=== PATIENT | female | born 2000 | race Caucasian/White ===

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

== ENCOUNTER 2018-12-02 10:32 | Inpatient (IN) | payer MEDICAID ==
[~2018-12-02 10:32] MED LIST: Lidocaine 1% with EPINEPHrine 1:100,000 20 ML MDV INJECT ONE; fentaNYL 400 MCG in Ropivacaine HCl/PF 200 ML IV ONE
[2018-12-02] MEDS ORDERED: Penicillin G Potassium 5 MILLUNITS in Sodium Chloride 0.9% 100 ML IV ONE (11:00)
[2018-12-02] MEDS: Sodium Chloride 0.9% 10 ML Syringe FLUSH PRN ×2 (11:17→14:26)
[2018-12-02] MEDS: Clindamycin in 0.9 % Sod Chlor 900 MG/50 ML BAG IV SCH ×2 (11:42→19:05)
[2018-12-02] MEDS ORDERED: Lactated Ringers 1,000 ML IV ONE (13:00)
[2018-12-02] MEDS: Lactated Ringers 1,000 ML IV SCH ×2 (14:20→18:22)
[2018-12-02] MEDS ORDERED: Naloxone 0.4 MG/ML SDV IVPUSH PRN (14:30)
[2018-12-02] MEDS ORDERED: ePHEDrine 50 MG/ML SDV IVPUSH PRN (14:30)
[2018-12-02] MEDS ORDERED: diphenhydrAMINE 50 MG/ML SDV IV PRN (14:30)
[2018-12-02] MEDS ORDERED: Lactated Ringers 500 ML IV SCH (14:30)
[2018-12-02] MEDS ORDERED: Ondansetron 4 MG/2 ML SDV IVPUSH PRN (14:30)
[2018-12-02] MEDS ORDERED: Penicillin G Potassium 2.5 MILLUNITS in Sodium Chloride 0.9% 50 ML IV SCH (15:30)
[2018-12-02] MEDS ORDERED: FENTANYL IV ONE (18:22)
[2018-12-02] MEDS ORDERED: ROPIVACAINE HCL IV ONE (18:22)
[2018-12-02] MEDS ORDERED: Meperidine PF 25 MG/ML Syringe IVPUSH ONE (20:22)
[2018-12-02] MEDS ORDERED: Promethazine 25 MG in Sodium Chloride 0.9% 50 ML IV ONE (20:24)
[2018-12-02] MEDS ORDERED: fentaNYL 400 MCG in Ropivacaine HCl/PF 200 ML IV ONE (20:25)
[2018-12-02] MEDS ORDERED: Promethazine 25 MG/ML SDV IV ONE (20:30)
[2018-12-02] MEDS ORDERED: Promethazine 25 MG/ML SDV ONE (20:30)
--- NOTE | 2018-12-03 05:45 | DEL ---
DATE OF DELIVERY: 12/02/2018 DIAGNOSES: 1. Removal of retained placenta. 2. Group B streptococcus positivity in . 3. Still . BRIEF SUMMARY: This is a 18-year-old female who came in with ruptured membranes. We started Pitocin. I saw her about 1930 hours and at that time she was 4 cm. Epidural was asked for and obtained. Initially, it was inadequate, but this was reinforced and a new 1 placed, and it was adequate. She started pushing around 11, and with 1 push delivered a live male infant. I arrived in the room shortly after the baby was on the maternal abdomen. I cut the cord and handed the baby to awaiting nurses. The placenta had difficulty coming out and only a piece came out with the cord. I then had to use a sterile procedure, and inserted my whole arm and was able to disattach it from the uterine fundus. This took a little difficulty, but eventually was able to be done with some oxytocin. Minimal bleeding was encountered. The patient was stable after delivery. We will follow with fluids and also on CBC in the morning. /[id number] PATRICIA/ANITA
[2018-12-03] MEDS: Clindamycin in 0.9 % Sod Chlor 900 MG/50 ML BAG IV SCH (06:44)
[2018-12-03] MEDS: Ibuprofen 600 MG Tab PO PRN ×3 (07:41→21:45)
--- NOTE | 2018-12-03 19:50 | PCM.PNPP ---
- General Info Date of Service: 12/03/18 Subjective Update: Doing well. No pain. Functional Status: Reports: Pain Controlled - Review of Systems General: Reports: No Symptoms HEENT: Reports: No Symptoms Pulmonary: Reports: No Symptoms Cardiovascular: Reports: No Symptoms Gastrointestinal: Reports: No Symptoms Genitourinary: Reports: No Symptoms Musculoskeletal: Reports: No Symptoms Skin: Reports: No Symptoms Neurological: Reports: No Symptoms Psychiatric: Reports: No Symptoms - General Info Date of Service: 12/03/18 - Patient Data Vital Signs - Most Recent: Last Vital Signs Temp 98 F 12/03/18 16:23 Pulse 61 12/03/18 16:23 Resp 18 12/03/18 16:23 BP 110/62 12/03/18 16:23 Pulse Ox 99 12/03/18 16:23 Weight - Most Recent: 71.214 kg I&O - Last 24 Hours: Intake & Output 12/03/18 12/03/18 12/03/18 06:59 14:59 22:59 Output Total 1000 Balance -1000 Lab Results - Last 24 Hours: Laboratory Results - last 24 hr 12/03/18 Range/Units 06:42 WBC 13.4 H (4.5-12.0) X10-3/uL RBC 4.55 (3.23-5.20) x10(6)uL Hgb 13.6 (11.5-15.5) g/dL Hct 39.9 (30.0-51.3) % MCV 87.8 (80-96) fL MCH 29.9 (27.7-33.6) pg MCHC 34.1 (32.2-35.4) g/dL RDW 12.3 (11.5-15.5) % Plt Count 204 (125-369) X10(3)uL MPV 7.9 (7.4-10.4) fL Neut % (Auto) 77.5 (46-82) % Lymph % (Auto) 14.2 (13-37) % [place] % (Auto) 6.1 (4-12) % Eos % (Auto) 1 (1.0-5.0) % Baso % (Auto) 1 (0-2) % Neut # (Auto) 10.4 H (1.6-8.3) # Lymph # (Auto) 1.9 (0.6-5.0) # [place] # (Auto) 0.8 (0.0-1.3) # Eos # (Auto) 0.1 (0.0-0.8) # Baso # (Auto) 0.2 (0.0-0.2) # Med Orders - Current: Current Medications Diphenhydramine HCl (Benadryl) 25 mg IV ASDIRECTED PRN PRN Reason: Pruritus Ibuprofen (Motrin) 600 mg PO Q4H PRN PRN Reason: Pain Last Admin: 12/03/18 12:21 Dose: 600 mg Sodium Chloride (Saline Flush) 10 ml FLUSH ASDIRECTED PRN PRN Reason: Keep Vein Open Last Admin: 12/02/18 14:26 Dose: 10 ml Discontinued Medications Ephedrine Sulfate (Ephedrine Sulfate) 5 mg IVPUSH ASDIRECTED PRN PRN Reason: Hypotension Stop: 12/03/18 00:10 Penicillin G Potassium 5 (millunits/ Sodium Chloride) 100 mls @ 100 mls/hr IV ONETIME ONE Stop: 12/02/18 11:59 Last Admin: 12/02/18 11:24 Dose: 100 mls/hr Clindamycin/Sodium Chloride (Cleocin In Ns) 900 mg in 50 mls @ 100 mls/hr IV Q8H LEILA Last Admin: 12/03/18 06:44 Dose: Not Given Lactated Ringer's (Ringers, Lactated) 1,000 mls @ 999 mls/hr IV BOLUS ONE Stop: 12/02/18 14:00 Last Admin: 12/02/18 13:30 Dose: 999 mls/hr Lactated Ringer's (Ringers, Lactated) 1,000 mls @ 999 mls/hr IV BOLUS LEILA Lactated Ringer's (Ringers, Lactated) 1,000 mls @ 125 mls/hr IV ASDIRECTED LEILA Last Infusion: 12/02/18 21:44 Dose: 125 mls/hr Oxytocin/Sodium Chloride (Pitocin In Ns 20 Units/1,000 Ml) 20 unit in 1,000 mls @ 6 mls/hr IV TITRATE LEILA; Protocol Last Titration: 12/02/18 21:30 Dose: 6 munits/min, 18 mls/hr Promethazine HCl 25 mg/ Sodium (Chloride) 51 mls @ 200 mls/hr IV ONETIME ONE Stop: 12/02/18 20:39 Last Admin: 12/02/18 21:15 Dose: Not Given Meperidine HCl (Demerol) 25 mg IVPUSH ONETIME ONE Stop: 12/02/18 20:23 Last Admin: 12/02/18 20:38 Dose: 25 mg Naloxone HCl (Narcan) 0.1 mg IVPUSH ONETIME PRN PRN Reason: Sedation Ondansetron HCl (Zofran) 4 mg IVPUSH Q6H PRN PRN Reason: Nausea/Vomiting Promethazine HCl (Phenergan) 25 mg IV ONETIME ONE Stop: 12/02/18 20:31 Last Admin: 12/02/18 20:48 Dose: 25 mg Promethazine HCl (Phenergan) Confirm Administered Dose 25 mg .ROUTE .STK-MED ONE Stop: 12/02/18 20:31 Last Admin: 12/02/18 21:12 Dose: Not Given - Infant Interaction Disposition, : to Nursery Infant Feeding: Bottle Fed Support Person: Mother, Significant Other - Recovery Exam Fundal Tone: Firm Fundal Level: At Umbilicus Fundal Placement: Midline Lochia Amount: Small Lochia Color: Rubra/Red Perineum Description: Intact, Minimal Bruising/Swelling Episiotomy/Laceration: None Bladder Status: Voiding - Exam General: Alert, Oriented HEENT: Pupils Equal Neck: Supple Lungs: Clear to Auscultation, Normal Respiratory Effort Cardiovascular: Regular Rate, Regular Rhythm GI/Abdominal Exam: Normal Bowel Sounds, Soft, Non-Tender, No Organomegaly, No Distention, No Abnormal Bruit, No Mass, Pelvis Stable Extremities: Normal Inspection, Normal Range of Motion, Non-Tender, No Pedal Edema, Normal Capillary Refill Skin: Warm, Dry, Intact Wound/Incisions: Healing Well Neurological: No New Focal Deficit Psy/Mental Status: Alert, Normal Affect, Normal Mood - Problem List & Annotations (1) Vaginal delivery SNOMED Code(s): 857453630 Code(s): O80 - ENCOUNTER FOR FULL-TERM UNCOMPLICATED DELIVERY Status: Acute Current Visit: Yes (2) care and examination SNOMED Code(s): 013813999, 288559509 Code(s): Z39.2 - ENCOUNTER FOR ROUTINE FOLLOW-UP Status: Acute Current Visit: Yes - Problem List Review Problem List Initiated/Reviewed/Updated: Yes - My Orders Last 24 Hours: My Active Orders 12/02/18 23:39 Vital Signs [RC] 08,16,00 Ibuprofen [Motrin] 600 mg PO Q4H PRN Assess Uterine Involution [WOMSER] Per Unit Routine - Plan Plan:: Offered Nicotine gum,or patches. Declined. DC home tomorrow
[2018-12-04] MEDS: Ibuprofen 600 MG Tab PO PRN (06:24)
--- NOTE | 2018-12-04 07:01 | PCM.PNPP ---
- General Info Date of Service: 12/04/18 Functional Status: Reports: Pain Controlled - Review of Systems General: Reports: No Symptoms HEENT: Reports: No Symptoms Pulmonary: Reports: No Symptoms Cardiovascular: Reports: No Symptoms - General Info Date of Service: 12/04/18 - Patient Data Vital Signs - Most Recent: Last Vital Signs Temp 98.0 F 12/04/18 00:00 Pulse 63 12/04/18 00:00 Resp 16 12/04/18 00:00 BP 133/72 12/04/18 00:00 Pulse Ox 99 12/04/18 00:00 Weight - Most Recent: 71.214 kg Med Orders - Current: Current Medications Diphenhydramine HCl (Benadryl) 25 mg IV ASDIRECTED PRN PRN Reason: Pruritus Ibuprofen (Motrin) 600 mg PO Q4H PRN PRN Reason: Pain Last Admin: 12/04/18 06:24 Dose: 600 mg Sodium Chloride (Saline Flush) 10 ml FLUSH ASDIRECTED PRN PRN Reason: Keep Vein Open Last Admin: 12/02/18 14:26 Dose: 10 ml Discontinued Medications Ephedrine Sulfate (Ephedrine Sulfate) 5 mg IVPUSH ASDIRECTED PRN PRN Reason: Hypotension Stop: 12/03/18 00:10 Penicillin G Potassium 5 (millunits/ Sodium Chloride) 100 mls @ 100 mls/hr IV ONETIME ONE Stop: 12/02/18 11:59 Last Admin: 12/02/18 11:24 Dose: 100 mls/hr Clindamycin/Sodium Chloride (Cleocin In Ns) 900 mg in 50 mls @ 100 mls/hr IV Q8H LEILA Last Admin: 12/03/18 06:44 Dose: Not Given Lactated Ringer's (Ringers, Lactated) 1,000 mls @ 999 mls/hr IV BOLUS ONE Stop: 12/02/18 14:00 Last Admin: 12/02/18 13:30 Dose: 999 mls/hr Lactated Ringer's (Ringers, Lactated) 1,000 mls @ 999 mls/hr IV BOLUS LEILA Lactated Ringer's (Ringers, Lactated) 1,000 mls @ 125 mls/hr IV ASDIRECTED LEILA Last Infusion: 12/02/18 21:44 Dose: 125 mls/hr Oxytocin/Sodium Chloride (Pitocin In Ns 20 Units/1,000 Ml) 20 unit in 1,000 mls @ 6 mls/hr IV TITRATE LEILA; Protocol Last Titration: 12/02/18 21:30 Dose: 6 munits/min, 18 mls/hr Promethazine HCl 25 mg/ Sodium (Chloride) 51 mls @ 200 mls/hr IV ONETIME ONE Stop: 12/02/18 20:39 Last Admin: 12/02/18 21:15 Dose: Not Given Meperidine HCl (Demerol) 25 mg IVPUSH ONETIME ONE Stop: 12/02/18 20:23 Last Admin: 12/02/18 20:38 Dose: 25 mg Naloxone HCl (Narcan) 0.1 mg IVPUSH ONETIME PRN PRN Reason: Sedation Ondansetron HCl (Zofran) 4 mg IVPUSH Q6H PRN PRN Reason: Nausea/Vomiting Promethazine HCl (Phenergan) 25 mg IV ONETIME ONE Stop: 12/02/18 20:31 Last Admin: 12/02/18 20:48 Dose: 25 mg Promethazine HCl (Phenergan) Confirm Administered Dose 25 mg .ROUTE .STK-MED ONE Stop: 12/02/18 20:31 Last Admin: 12/02/18 21:12 Dose: Not Given - Interaction Infant Disposition, : in Room with Family Feeding: Bottle Fed Support Person: Mother, Significant Other - Recovery Exam Fundal Tone: Firm Fundal Level: 2 Fingerbreadths Below Umbilicus Fundal Placement: Midline Lochia Amount: Small Lochia Color: Rubra/Red Perineum Description: Intact, Minimal Bruising/Swelling Episiotomy/Laceration: None Bladder Status: Voiding - Exam General: Alert, Oriented HEENT: Pupils Equal Neck: Supple Lungs: Clear to Auscultation, Normal Respiratory Effort Cardiovascular: Regular Rate, Regular Rhythm GI/Abdominal Exam: Normal Bowel Sounds, Soft, Non-Tender, No Organomegaly, No Distention, No Abnormal Bruit, No Mass, Pelvis Stable Extremities: Normal Inspection, Normal Range of Motion, Non-Tender, No Pedal Edema, Normal Capillary Refill Skin: Warm, Dry, Intact Wound/Incisions: Healing Well Neurological: No New Focal Deficit Psy/Mental Status: Alert, Normal Affect, Normal Mood - Problem List & Annotations (1) Vaginal delivery SNOMED Code(s): 883012271 Code(s): O80 - ENCOUNTER FOR FULL-TERM UNCOMPLICATED DELIVERY Status: Acute Current Visit: Yes (2) care and examination SNOMED Code(s): 067099415, 167141886 Code(s): Z39.2 - ENCOUNTER FOR ROUTINE FOLLOW-UP Status: Acute Current Visit: Yes - Problem List Review Problem List Initiated/Reviewed/Updated: Yes - Plan Plan:: [place] home today. Follow up 6 weeks
== END 2018-12-04 10:30 | disposition home or self-care (01) | DRG 807 ==
LOC: FB.OBCHECK 10:32 → FB.OB 10:32 → FB.OBCHECK 10:44 → FB.OB 10:45
PROVIDERS: ADMIT Family Medicine; ATTEND Family Medicine
PROC: 10E0XZZ Delivery of Products of Conception, External Approach (ICD-10-PCS; principal; 2018-12-02)
PROC: 3E033VJ Introduction of Other Hormone into Peripheral Vein, Percutaneous Approach (ICD-10-PCS; 2018-12-02)
DX: O99.824 Streptococcus B carrier state complicating childbirth (principal); Z37.0 Single live birth; O99.334 Smoking (tobacco) complicating childbirth; F17.210 Nicotine dependence, cigarettes, uncomplicated; Z3A.38 38 weeks gestation of pregnancy
CPT/HCPCS: 36415; 59409; 85025; A9270-GY; J2175; J2540; J2550; J2590; J2795; J3010; J3490; J7030; J7120

== ENCOUNTER 2020-10-12 05:27 | Emergency (ER) | payer MEDICAID ==
--- NOTE | 2020-10-12 13:05 | ER ---
DATE SEEN: 10/12/2020 REASON FOR VISIT: Check tampon. HISTORY OF PRESENT ILLNESS: This is a 20-year-old who was not sure whether she changed her tampon and is worried that it is stuck up in her vagina. She was not able to feel the strings. PAST MEDICAL HISTORY: Healthy with no active medical problems. ALLERGIES: None except penicillin. PHYSICAL EXAMINATION: VITAL SIGNS: Afebrile. 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 IMPRESSION: Encountered to check for foreign body in the vagina. PLAN: Reassurance. /[id number] TN/MODL
== END 2020-10-12 06:00 | disposition home or self-care (01) ==
LOC: FB.ED 05:27
DX: T19.2XXA Foreign body in vulva and vagina, initial encounter (principal)
CPT/HCPCS: 99283

== ENCOUNTER 2020-11-15 12:14 | Emergency (ER) | payer MEDICAID ==
[2020-11-15] MEDS ORDERED: Ketorolac 30 MG/ML SDV IM ONE (12:40)
[2020-11-15] MEDS ORDERED: Ondansetron 4 MG Tab.DIS PO ONE (12:41)
--- NOTE | 2020-11-15 12:54 | EDM.PDOC ---
ED HPI GENERAL MEDICAL PROBLEM - General Chief Complaint: Headache Stated Complaint: POSSIBLE COVID Time Seen by Provider: 11/15/20 12:35 Source of Information: Reports: Patient History Limitations: Reports: No Limitations - History of Present Illness INITIAL COMMENTS - FREE TEXT/NARRATIVE: 20 yo female was tested in a local clinic yesterday for Covid and tested neg. Her brother with whom she resides recently tested positive. She has not been vaccinated for Covid. She reports a sore throat with an occasional cough for about a week, nausea and vomiting for 2 d, and diffuse body aches and PAZ for just under 2 days. She is not dizzy with standing. No diarrhea. Onset: Gradual Onset Date: 11/08/20 Duration: Week(s): (1), Getting Worse Location: Reports: Generalized Quality: Reports: Ache Severity: Moderate Improves with: Reports: None Worsens with: Reports: Other (time) Context: Reports: Other (See HPI) Associated Symptoms: Reports: Cough (occasional), Headaches, Nausea/Vomiting. 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) (none) - Related Data Allergies Allergy/AdvReac Type Severity Reaction Status Date / Time penicillin G Allergy Itching Verified 10/12/20 06:52 Home Meds: Home Meds NK [No Known Home Meds] 07/10/17 [History] Past Medical History - Past Health History Medical/Surgical History: Denies Medical/Surgical History HEENT History: Reports: Other (See Below) Other HEENT History: ears Cardiovascular History: Reports: Other (See Below) Other Cardiovascular History: states had a murmur when a baby also states has rare episodes of chest pain 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 Neurological History: Reports: Migraines Psychiatric History: Reports: Anxiety, Depression Other Psychiatric History: admits to smoking marijuana daily - Past Surgical History HEENT Surgical History: Reports: Myringotomy w Tube(s), Tonsillectomy Neurological Surgical History: Reports: None Social & Family History - Family History Family Medical History: No Pertinent Family History - Caffeine Use Caffeine Use: Reports: Soda Other Caffeine Use: 3 ED ROS GENERAL - Review of Systems Review Of Systems: See Below Constitutional: Reports: Malaise, Decreased Appetite HEENT: Reports: Ear Pain, Rhinitis, Throat Pain Respiratory: Reports: Cough. Denies: Shortness of Breath, Wheezing, Pleuritic Chest Pain, Sputum, Hemoptysis Cardiovascular: Reports: No Symptoms Endocrine: Reports: No Symptoms GI/Abdominal: Reports: Black Stool, Bloody Stool, Nausea, Vomiting. Denies: Diarrhea, Hematemesis : Reports: No Symptoms Musculoskeletal: Reports: No Symptoms Skin: Reports: No Symptoms Neurological: Reports: No Symptoms Psychiatric: Reports: No Symptoms - Physical Exam Exam: See Below Exam Limited By: No Limitations General Appearance: Alert, WD/WN, No Apparent Distress Eye Exam: Bilateral Eye: Normal Inspection Ears: Normal External Exam, Normal Canal, Hearing Grossly Normal, Normal TMs Nose: Normal Inspection, No Blood Throat/Mouth: Normal Inspection, Normal Lips, Normal Oropharynx, Normal Voice, No Airway Compromise Head Exam: Atraumatic, Normocephalic Neck: Normal Inspection Respiratory/Chest: No Respiratory Distress, Lungs Clear, Normal Breath Sounds, No Accessory Muscle Use Cardiovascular: Regular Rate, Rhythm, No Edema GI/Abdominal: Soft, Non-Tender, No Distention Neuro Exam (Abbreviated): Alert, Oriented, CN II-XII Intact, Normal Cognition, No Motor/Sensory Deficits Back Exam: Normal Inspection, CVA Tenderness (R), CVA Tenderness (L) Extremities: Normal Inspection, Normal Range of Motion, Non-Tender, No Pedal Edema Psychiatric: Normal Affect, Normal Mood Skin Exam: Warm, Dry, Intact, Normal Color, No Rash Course - Orders/Labs/Meds Orders: Active Orders 24 hr Category Date Time Status Isolation [COMM] Routine Oth 11/15/20 12:42 Ordered Labs: Laboratory Tests 11/15/20 11/15/20 11/15/20 Range/Units 13:00 13:00 13:13 WBC 6.2 (3.0-10.3) x10-3/uL RBC 4.84 (3.60-5.20) x10(6)uL Hgb 14.6 (11.4-15.5) g/dL Hct 42.7 (34.2-48.2) % MCV 88.3 (76.7-100.5) fL MCH 30.2 (23.9-33.9) pg MCHC 34.3 (31.9-34.8) g/dL RDW 12.2 L (12.3-16.5) % Plt Count 169 (151-488) x10(3)uL Sodium 138 (135-145) mmol/L Potassium 3.9 (3.5-5.3) mmol/L Chloride 103 (100-110) mmol/L Carbon Dioxide 25 (21-32) mmol/L BUN 8 (7-18) mg/dL Creatinine 1.0 (0.55-1.02) mg/dL Est Cr Clr Drug Dosing TNP Estimated GFR (MDRD) > 60 (>60) BUN/Creatinine Ratio 8.0 L (9-20) Glucose 110 (80-116) mg/dL Calcium 8.9 (8.6-10.2) mg/dL SARS-CoV-2 RNA (VERONICA) Positive H (NEGATIVE) Meds: Medications Discontinued Medications Generic Name Dose Route Start Last Admin Trade Name Freq PRN Reason Stop Dose Admin Ketorolac Tromethamine 30 mg 11/15/20 12:40 11/15/20 13:01 Ketorolac 30 Mg/Ml Sdv IM 11/15/20 12:41 30 mg ONETIME ONE Administration Ondansetron HCl 4 mg 11/15/20 12:41 11/15/20 13:01 Ondansetron 4 Mg Tab.Dis PO 11/15/20 12:42 4 mg ONETIME ONE Administration - Re-Assessments/Exams Free Text/Narrative Re-Assessment/Exam: 11/15/20 14:14 Is feeling better now after tx. Departure - Departure Time of Disposition: 14:20 Disposition: Home, Self-Care 01 Condition: Fair Clinical Impression: COVID-19 - Discharge Information *PRESCRIPTION DRUG MONITORING PROGRAM REVIEWED*: Not Applicable *COPY OF PRESCRIPTION DRUG MONITORING REPORT IN PATIENT JONAH: Not Applicable Instructions: COVID-19 Frequently Asked Questions, Symptoms of COVID-19 - CDC (04/03/2020) Forms: ED Department Discharge Additional Instructions: Take Zofran as needed for nausea control. Use ibuprofen and/or acetaminophen as needed for body aches/fever control. F/U with your provider or return here if short of breath. Isolate yourself for the next week to prevent spread. - My Orders Last 24 Hours: My Active Orders 11/15/20 12:42 Isolation [COMM] Routine - Assessment/Plan Last 24 Hours: My Active Orders 11/15/20 12:42 Isolation [COMM] Routine
== END 2020-11-15 15:05 | disposition home or self-care (01) ==
LOC: FB.ED 12:14
DX: U07.1 COVID-19 (principal); Z88.0 Allergy status to penicillin
CPT/HCPCS: 36415; 80048; 85027; 87635; 87804; 96372; 99284; A9270; J1885; U0002

== ENCOUNTER 2021-02-06 15:04 | Emergency (ER) | payer MEDICAID ==
[2021-02-06] MEDS ORDERED: Lidocaine 2% 20 ML MDV INFILT ONE (15:05)
[2021-02-06 16:52] LABS: ACETAMINOPHEN < 2 ug/mL (<2)
--- NOTE | 2021-02-06 17:56 | EDM.PDOC ---
ED HPI GENERAL MEDICAL PROBLEM - General Chief Complaint: Upper Extremity Injury/Pain Stated Complaint: left arm bleeding Time Seen by Provider: 02/06/21 15:15 Source of Information: Reports: Patient, Family History Limitations: Reports: No Limitations - History of Present Illness INITIAL COMMENTS - FREE TEXT/NARRATIVE: Patient is a 20 YO WF who presented to the ED because of suicidal ideation and self harm. She has a history of anxiety and depression and has been worse since his father in December of 2020. She is on antidepressant which she quit taking 1.5 years ago because she think it's not helping. At times she think she is too although she doesn't have active plans in mind. " Today I just snapped because my sister in [place] don't talk to me anymore and I just grabbed a knife and cut my left wrist twice". She has a history of cutting her left wrist without intent of dying. She also denies having homicidal ideation. There is no associated hallucinations. She does drink alcohol and smoke weed occasionally. 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 Neurological History: Reports: Migraines Psychiatric History: Reports: Anxiety, Depression Other Psychiatric History: admits to smoking marijuana daily - Infectious Disease History Infectious Disease History: Reports: None - Past Surgical History HEENT Surgical History: Reports: Myringotomy w Tube(s), Tonsillectomy Neurological Surgical History: Reports: None Social & Family History - Family History Family Medical History: No Pertinent Family History - Caffeine Use Caffeine Use: Reports: Soda Other Caffeine Use: 3 Review of Systems - Review of Systems Review Of Systems: See Below Constitutional: Reports: No Symptoms Eyes: Reports: No Symptoms Ears: Reports: No Symptoms Nose: Reports: No Symptoms Mouth/Throat: Reports: No Symptoms Respiratory: Reports: No Symptoms Cardiovascular: Reports: No Symptoms GI/Abdominal: Reports: No Symptoms Genitourinary: Reports: No Symptoms Musculoskeletal: Reports: No Symptoms Skin: Reports: Wound Neurological: Reports: No Symptoms Psychiatric: Reports: Depression ED EXAM, GENERAL - Physical Exam Exam: See Below Exam Limited By: No Limitations General Appearance: Alert, No Apparent Distress Ears: Normal External Exam, Normal Canal Nose: Normal Inspection, Normal Mucosa, No Blood Throat/Mouth: Normal Inspection, Normal Lips, Normal Teeth, Normal Gums, Normal Oropharynx, Normal Voice Head: Atraumatic, Normocephalic Neck: Normal Inspection, Supple, Non-Tender, Full Range of Motion Respiratory/Chest: No Respiratory Distress, Lungs Clear, Normal Breath Sounds, No Accessory Muscle Use, Chest Non-Tender Cardiovascular: Normal Peripheral Pulses, Regular Rate, Rhythm, No Edema, No Gallop GI/Abdominal: Normal Bowel Sounds, Soft, Non-Tender, No Organomegaly, No Distention, No Abnormal Bruit, No Mass Back Exam: Normal Inspection, Full Range of Motion Extremities: Normal Inspection, Normal Range of Motion, Non-Tender, No Pedal Edema, Normal Capillary Refill Neurological: Alert, Oriented, CN II-XII Intact, Normal Cognition, Normal Reflexes, No Motor/Sensory Deficits Psychiatric: Depressed Mood Skin Exam: Warm ED TRAUMA EXTREMITY PROCEDURES - Laceration/Wound Repair Left Arm Lac/Wound Length In cm: 8 Appearance: Subcutaneous Distal NVT: Neuro & Vascular Intact Anesthetic Type: Local Local Anesthesia - Lidocaine (Xylocaine): 2% Plain Local Anesthetic Volume: 4cc Skin Prep: Chlorhexidine (Hibiciens) Exploration/Debridement/Repair: Wound Explored Closed With: Sutures Suture Size: 3-0 # of Sutures: 10 Suture Type: Nylon Course - Vital Signs Text/Narrative:: Lab result was reviewed and discussed with patient Tdap Last Recorded V/S: Last Vital Signs Temp 36.8 C 02/06/21 15:04 Pulse 78 02/06/21 16:30 Resp 18 02/06/21 16:30 BP 124/71 02/06/21 16:30 Pulse Ox 98 02/06/21 15:04 - Orders/Labs/Meds Labs: Laboratory Tests 02/06/21 02/06/21 02/06/21 Range/Units 15:40 15:40 15:40 WBC 11.1 H (3.0-10.3) x10-3/uL RBC 4.92 (3.60-5.20) x10(6)uL Hgb 14.6 (11.4-15.5) g/dL Hct 43.1 (34.2-48.2) % MCV 87.5 (76.7-100.5) fL MCH 29.6 (23.9-33.9) pg MCHC 33.9 (31.9-34.8) g/dL RDW 12.9 (12.3-16.5) % Plt Count 202 (151-488) x10(3)uL MPV 7.4 (7.1-12.4) fL Neut % (Auto) 82.0 H (30.8-76.2) % Lymph % (Auto) 8.7 L (18.4-52.1) % [place] % (Auto) 7.6 (4.4-15.7) % Eos % (Auto) 1.5 (0.6-8.1) % Baso % (Auto) 0.2 (0.2-1.5) % Neut # (Auto) 9.1 H (1.5-6.3) x10-3/uL Lymph # (Auto) 1.0 (1.0-4.4) x10-3/uL [place] # (Auto) 0.8 (0.3-1.0) x10-3/uL Eos # (Auto) 0.2 (0.0-0.8) x10-3/uL Baso # (Auto) 0.0 (0.0-0.1) x10-3/uL Sodium 140 (135-145) mmol/L Potassium 3.6 (3.5-5.3) mmol/L Chloride 101 (100-110) mmol/L Carbon Dioxide 28 (21-32) mmol/L BUN 9 (7-18) mg/dL Creatinine 1.1 H (0.55-1.02) mg/dL Est Cr Clr Drug Dosing TNP Estimated GFR (MDRD) > 60 (>60) BUN/Creatinine Ratio 8.2 L (9-20) Glucose 103 (80-116) mg/dL Calcium 9.3 (8.6-10.2) mg/dL Total Bilirubin 0.6 (0.1-1.3) mg/dL AST 16 (5-25) IU/L ALT 14 (12-36) U/L Alkaline Phosphatase 51 L (56-112) IU/L Total Protein 8.3 H (6.0-8.0) g/dL Albumin 4.3 (3.5-5.2) g/dL Globulin 4.0 g/dL Albumin/Globulin Ratio 1.1 Free T4 Direct (0.82-1.77) ng/dL TSH, Ultra Sensitive (0.36-3.74) IU/mL HCG, Quant < 5 L (<5) mIU/mL Urine Color (YELLOW) Urine Appearance (CLEAR) Urine pH (5.0-6.5) Ur Specific [place] (1.010-1.025) Urine Protein (NEGATIVE) mg/dL Urine Glucose (UA) (NORMAL) mg/dL Urine Ketones (NEGATIVE) mg/dL Urine Occult Blood (NEGATIVE) Urine Nitrite (NEGATIVE) Urine Bilirubin (NEGATIVE) Urine Urobilinogen (NEGATIVE) mg/dL Ur Leukocyte Esterase (NEGATIVE) Urine RBC (0-5) Urine WBC (0-5) Ur Squamous Epith Cells (NS,R,O) Urine Bacteria (NS) Salicylates 0.4 L (<2.8) mg/dL Urine Opiates Screen (NEGATIVE) Ur Buprenorphine Scrn (NEGATIVE) Ur Oxycodone Screen (NEGATIVE) Urine Methadone Screen (NEGATIVE) Ur Propoxyphene Screen (NEGATIVE) Acetaminophen < 2 L (<2) ug/mL Ur Barbiturates Screen (NEGATIVE) Ur Tricyclics Screen (NEGATIVE) Ur Phencyclidine Scrn (NEGATIVE) Ur Amphetamine Screen (NEGATIVE) U Methamphetamines Scrn (NEGATIVE) U Benzodiazepines Scrn (NEGATIVE) U Cocaine Metab Screen (NEGATIVE) U Marijuana (THC) Screen (NEGATIVE) Ethyl Alcohol < 0.03 (<0.03) % SARS-CoV-2 RNA (VERONICA) (NEGATIVE) 02/06/21 02/06/21 02/06/21 Range/Units 15:40 15:40 16:58 WBC (3.0-10.3) x10-3/uL RBC (3.60-5.20) x10(6)uL Hgb (11.4-15.5) g/dL Hct (34.2-48.2) % MCV (76.7-100.5) fL MCH (23.9-33.9) pg MCHC (31.9-34.8) g/dL RDW (12.3-16.5) % Plt Count (151-488) x10(3)uL MPV (7.1-12.4) fL Neut % (Auto) (30.8-76.2) % Lymph % (Auto) (18.4-52.1) % [place] % (Auto) (4.4-15.7) % Eos % (Auto) (0.6-8.1) % Baso % (Auto) (0.2-1.5) % Neut # (Auto) (1.5-6.3) x10-3/uL Lymph # (Auto) (1.0-4.4) x10-3/uL [place] # (Auto) (0.3-1.0) x10-3/uL Eos # (Auto) (0.0-0.8) x10-3/uL Baso # (Auto) (0.0-0.1) x10-3/uL Sodium (135-145) mmol/L Potassium (3.5-5.3) mmol/L Chloride (100-110) mmol/L Carbon Dioxide (21-32) mmol/L BUN (7-18) mg/dL Creatinine (0.55-1.02) mg/dL Est Cr Clr Drug Dosing Estimated GFR (MDRD) (>60) BUN/Creatinine Ratio (9-20) Glucose (80-116) mg/dL Calcium (8.6-10.2) mg/dL Total Bilirubin (0.1-1.3) mg/dL AST (5-25) IU/L ALT (12-36) U/L Alkaline Phosphatase (56-112) IU/L Total Protein (6.0-8.0) g/dL Albumin (3.5-5.2) g/dL Globulin g/dL Albumin/Globulin Ratio Free T4 Direct 1.07 (0.82-1.77) ng/dL TSH, Ultra Sensitive 2.07 (0.36-3.74) IU/mL HCG, Quant (<5) mIU/mL Urine Color Yellow (YELLOW) Urine Appearance Clear (CLEAR) Urine pH 7.0 H (5.0-6.5) Ur Specific [place] 1.010 (1.010-1.025) Urine Protein Trace (NEGATIVE) mg/dL Urine Glucose (UA) Normal (NORMAL) mg/dL Urine Ketones Negative (NEGATIVE) mg/dL Urine Occult Blood Negative (NEGATIVE) Urine Nitrite Negative (NEGATIVE) Urine Bilirubin Negative (NEGATIVE) Urine Urobilinogen Normal (NEGATIVE) mg/dL Ur Leukocyte Esterase Negative (NEGATIVE) Urine RBC 0-5 (0-5) Urine WBC 0-5 (0-5) Ur Squamous Epith Cells Few H (NS,R,O) Urine Bacteria Few H (NS) Salicylates (<2.8) mg/dL Urine Opiates Screen (NEGATIVE) Ur Buprenorphine Scrn (NEGATIVE) Ur Oxycodone Screen (NEGATIVE) Urine Methadone Screen (NEGATIVE) Ur Propoxyphene Screen (NEGATIVE) Acetaminophen (<2) ug/mL Ur Barbiturates Screen (NEGATIVE) Ur Tricyclics Screen (NEGATIVE) Ur Phencyclidine Scrn (NEGATIVE) Ur Amphetamine Screen (NEGATIVE) U Methamphetamines Scrn (NEGATIVE) U Benzodiazepines Scrn (NEGATIVE) U Cocaine Metab Screen (NEGATIVE) U Marijuana (THC) Screen (NEGATIVE) Ethyl Alcohol (<0.03) % SARS-CoV-2 RNA (VERONICA) (NEGATIVE) 02/06/21 02/06/21 Range/Units 16:58 17:21 WBC (3.0-10.3) x10-3/uL RBC (3.60-5.20) x10(6)uL Hgb (11.4-15.5) g/dL Hct (34.2-48.2) % MCV (76.7-100.5) fL MCH (23.9-33.9) pg MCHC (31.9-34.8) g/dL RDW (12.3-16.5) % Plt Count (151-488) x10(3)uL MPV (7.1-12.4) fL Neut % (Auto) (30.8-76.2) % Lymph % (Auto) (18.4-52.1) % [place] % (Auto) (4.4-15.7) % Eos % (Auto) (0.6-8.1) % Baso % (Auto) (0.2-1.5) % Neut # (Auto) (1.5-6.3) x10-3/uL Lymph # (Auto) (1.0-4.4) x10-3/uL [place] # (Auto) (0.3-1.0) x10-3/uL Eos # (Auto) (0.0-0.8) x10-3/uL Baso # (Auto) (0.0-0.1) x10-3/uL Sodium (135-145) mmol/L Potassium (3.5-5.3) mmol/L Chloride (100-110) mmol/L Carbon Dioxide (21-32) mmol/L BUN (7-18) mg/dL Creatinine (0.55-1.02) mg/dL Est Cr Clr Drug Dosing Estimated GFR (MDRD) (>60) BUN/Creatinine Ratio (9-20) Glucose (80-116) mg/dL Calcium (8.6-10.2) mg/dL Total Bilirubin (0.1-1.3) mg/dL AST (5-25) IU/L ALT (12-36) U/L Alkaline Phosphatase (56-112) IU/L Total Protein (6.0-8.0) g/dL Albumin (3.5-5.2) g/dL Globulin g/dL Albumin/Globulin Ratio Free T4 Direct (0.82-1.77) ng/dL TSH, Ultra Sensitive (0.36-3.74) IU/mL HCG, Quant (<5) mIU/mL Urine Color (YELLOW) Urine Appearance (CLEAR) Urine pH (5.0-6.5) Ur Specific [place] (1.010-1.025) Urine Protein (NEGATIVE) mg/dL Urine Glucose (UA) (NORMAL) mg/dL Urine Ketones (NEGATIVE) mg/dL Urine Occult Blood (NEGATIVE) Urine Nitrite (NEGATIVE) Urine Bilirubin (NEGATIVE) Urine Urobilinogen (NEGATIVE) mg/dL Ur Leukocyte Esterase (NEGATIVE) Urine RBC (0-5) Urine WBC (0-5) Ur Squamous Epith Cells (NS,R,O) Urine Bacteria (NS) Salicylates (<2.8) mg/dL Urine Opiates Screen Negative (NEGATIVE) Ur Buprenorphine Scrn Negative (NEGATIVE) Ur Oxycodone Screen Negative (NEGATIVE) Urine Methadone Screen Negative (NEGATIVE) Ur Propoxyphene Screen Negative (NEGATIVE) Acetaminophen (<2) ug/mL Ur Barbiturates Screen Negative (NEGATIVE) Ur Tricyclics Screen Negative (NEGATIVE) Ur Phencyclidine Scrn Negative (NEGATIVE) Ur Amphetamine Screen Negative (NEGATIVE) U Methamphetamines Scrn Negative (NEGATIVE) U Benzodiazepines Scrn Negative (NEGATIVE) U Cocaine Metab Screen Negative (NEGATIVE) U Marijuana (THC) Screen Positive H (NEGATIVE) Ethyl Alcohol (<0.03) % SARS-CoV-2 RNA (VERONICA) Negative (NEGATIVE) Meds: Medications Discontinued Medications Generic Name Dose Route Start Last Admin Trade Name Freq PRN Reason Stop Dose Admin Diphtheria/Tetanus/Acell Pertussis 0.5 ml 02/06/21 17:59 02/06/21 18:37 Diphtheria,Pertussis(Acell),Tetanus Vaccine 0.5 Ml Syringe IM 02/06/21 18:00 0.5 ml .ONCE ONE Administration Lidocaine HCl 4 ml 02/06/21 15:05 Lidocaine 2% 20 Ml Mdv INFILT 02/06/21 15:06 .STK-MED ONE Departure - Departure Time of Disposition: 17:00 Disposition: Against Medical Advice 07 Condition: Good Clinical Impression: Suicidal ideation, Laceration, Depression, Anxiety - Discharge Information Referrals: Nacho Taylor MD [Primary Care Provider] - Forms: ED Department Discharge Sepsis Event Note (ED) - Evaluation Sepsis Screening Result: No Definite Risk
[2021-02-06] MEDS ORDERED: Diphtheria,Pertussis(Acell),Tetanus Vaccine 0.5 ML Syringe IM ONE (17:59)
== END 2021-02-06 18:57 | disposition left against medical advice (07) ==
LOC: FB.ED 15:04
DX: F32.A Depression, unspecified (principal); S41.112A Laceration without foreign body of left upper arm, initial encounter; F41.9 Anxiety disorder, unspecified; Z88.0 Allergy status to penicillin; Z20.822 Contact with and (suspected) exposure to COVID-19; Z23 Encounter for immunization; X78.1XXA Intentional self-harm by knife, initial encounter
CPT/HCPCS: 12004; 36415; 80053; 80143; 80179; 80307; 81001; 84439; 84443; 84702; 85025; 90471; 90715; 99284-25; U0002

== ENCOUNTER 2021-02-17 21:10 | Emergency (ER) | payer MEDICAID ==
[2021-02-17] MEDS ORDERED: Ketorolac 30 MG/ML SDV IM ONE (22:10)
[2021-02-17] MEDS ORDERED: cefTRIAXone 1 GM Vial IM ONE (22:10)
--- NOTE | 2021-02-17 22:26 | EDM.PDOC ---
ED HPI GENERAL MEDICAL PROBLEM - General Chief Complaint: Wound Recheck Stated Complaint: STITCHES Time Seen by Provider: 02/17/21 22:00 Source of Information: Reports: Patient - History of Present Illness INITIAL COMMENTS - FREE TEXT/NARRATIVE: 20-year-old lady came to the emergency department because of pain, swelling, erythema, and discharge from lacerations that have been sutured approximately 10 days ago. She was seen by primary care and had a few sutures removed from one of the lacerations and that area seems to be partially dehisced at this time. Both lacerations on the left forearm have erythema, edema, pain as mentioned above. Patient does not have fever, chills, flulike symptoms, chest pain, shortness of breath, nausea, vomiting, diarrhea. Concerned about the pain and swelling. 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 Pain Score (Numeric/FACES): 4 - Related Data Allergies Allergy/AdvReac Type Severity Reaction Status Date / Time penicillin G Allergy Itching Verified 02/17/21 21:49 Home Meds: Home Meds Sulfamethoxazole/Trimethoprim [Bactrim Ds Tablet] 1 each PO BID #20 tablet 02/17/21 [Rx] Past Medical History - Past Health History Medical/Surgical History: Denies Medical/Surgical History HEENT History: Reports: Other (See Below) Other HEENT History: ears Cardiovascular History: Reports: Other (See Below) Other Cardiovascular History: states had a murmur when a baby also states has rare episodes of chest pain 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 Neurological History: Reports: Migraines Psychiatric History: Reports: Anxiety, Depression, Suicide Attempt, Suicidal Ideation Other Psychiatric History: admits to smoking marijuana daily - Infectious Disease History Infectious Disease History: Reports: None - Past Surgical History HEENT Surgical History: Reports: Myringotomy w Tube(s), Tonsillectomy Neurological Surgical History: Reports: None Social & Family History - Family History Family Medical History: No Pertinent Family History - Caffeine Use Caffeine Use: Reports: Soda Other Caffeine Use: 3 - Alcohol Use Days Per Week of Alcohol Use: 7 Number of Drinks Per Day: 2 Total Drinks Per Week: 14 - Recreational Drug Use Recreational Drug Use: Yes Recreational Drug Type: Reports: Marijuana/Hashish ED ROS GENERAL - Review of Systems Review Of Systems: See Below Constitutional: Reports: No Symptoms HEENT: Reports: No Symptoms Respiratory: Reports: No Symptoms Cardiovascular: Reports: No Symptoms Endocrine: Reports: No Symptoms GI/Abdominal: Reports: No Symptoms : Reports: No Symptoms Musculoskeletal: Reports: No Symptoms Skin: Reports: Erythema, Wound Neurological: Reports: No Symptoms Psychiatric: Reports: No Symptoms Hematologic/Lymphatic: Reports: No Symptoms Immunologic: Reports: No Symptoms ED EXAM, SKIN/RASH Exam: See Below Exam Limited By: No Limitations General Appearance: Alert, No Apparent Distress Eye Exam: Bilateral Eye: EOMI Throat/Mouth: Normal Inspection Head: Atraumatic, Normocephalic Neck: Normal Inspection Respiratory/Chest: No Respiratory Distress, Lungs Clear Cardiovascular: Normal Peripheral Pulses, Regular Rate, Rhythm GI/Abdominal: Normal Bowel Sounds, Soft, Non-Tender Back Exam: Normal Inspection Extremities: Normal Inspection Neurological: Alert, Oriented, CN II-XII Intact, Normal Cognition, Normal Gait Psychiatric: Normal Affect, Normal Mood Skin: Other (2 linear lacerations on the anterior surface of the left forearm with erythema, edema, no significant fluctuance, calor, inferior laceration has mild dehiscence) Course - Vital Signs Text/Narrative:: Patient agreed to ceftriaxone 1 g IM and Toradol 30 mg IM for initial treatment. Patient will have prescription for Bactrim sent to her local pharmacy she will pick that up tomorrow start Bactrim tomorrow. Follow-up with primary care. Steri-Strips applied to the inferior wound Last Recorded V/S: Last Vital Signs Temp 36.9 C 02/17/21 21:10 Pulse 76 02/17/21 21:10 Resp 18 02/17/21 21:10 BP 137/77 02/17/21 21:10 Pulse Ox 98 02/17/21 21:10 - Orders/Labs/Meds Meds: Medications Discontinued Medications Generic Name Dose Route Start Last Admin Trade Name Freq PRN Reason Stop Dose Admin Ceftriaxone Sodium 1 gm 02/17/21 22:10 Ceftriaxone 1 Gm Vial IM 02/17/21 22:11 ONETIME ONE Ketorolac Tromethamine 30 mg 02/17/21 22:10 Ketorolac 30 Mg/Ml Sdv IM 02/17/21 22:11 ONETIME ONE Departure - Departure Time of Disposition: 22:27 Disposition: Home, Self-Care 01 Condition: Good Clinical Impression: Cellulitis, Dehiscence of wound - Discharge Information *PRESCRIPTION DRUG MONITORING PROGRAM REVIEWED*: Not Applicable *COPY OF PRESCRIPTION DRUG MONITORING REPORT IN PATIENT JONAH: Not Applicable Prescriptions: Sulfamethoxazole/Trimethoprim [Bactrim Ds Tablet] 1 each PO BID #20 tablet Instructions: Wound Infection, [id number], Cellulitis, Adult, [id number], Wound Dehiscence Additional Instructions: Patient instructed to try to avoid mechanical agitation to the 2 repaired lacerations. Patient instructed to take medications as directed until completed. Patient instructed to return to the emergency department immediately if she has allergic reaction to medications. Instructed to follow-up with her primary care physician. Sepsis Event Note (ED) - Evaluation Sepsis Screening Result: No Definite Risk - Focused Exam Vital Signs: Vital Signs Temp Pulse Resp BP Pulse Ox 02/17/21 21:10 36.9 C 76 18 137/77 98
== END 2021-02-17 22:45 | disposition home or self-care (01) ==
LOC: FB.ED 21:10
DX: T81.30XA Disruption of wound, unspecified, initial encounter (principal); L03.114 Cellulitis of left upper limb; Z88.0 Allergy status to penicillin
CPT/HCPCS: 96372; 99283; J0696; J1885

== ENCOUNTER 2021-09-04 11:37 | Emergency (ER) | payer MEDICAID ==
[2021-09-04] MEDS: Sodium Chloride 0.9% 1,000 ML IV ONE (12:44)
[2021-09-04] MEDS: Ketorolac 30 MG/ML SDV IVPUSH ONE (12:46)
[2021-09-04 12:56] LABS: ESTIMATED GFR 81 mL/min (>60)
== END 2021-09-04 14:15 | disposition home or self-care (01) ==
LOC: FB.ED 11:37
DX: K58.1 Irritable bowel syndrome with constipation (principal); Z86.16 Personal history of COVID-19; Z88.0 Allergy status to penicillin; Z20.822 Contact with and (suspected) exposure to COVID-19
CPT/HCPCS: 36415; 74018; 80053; 81001; 81025; 83690; 85025; 86140; 96361; 96374; 99281; 99284-25; J1885; J7030; U0002

== ENCOUNTER 2022-06-17 17:48 | Emergency (ER) | payer MEDICAID | END 2022-06-17 18:50 | disposition home or self-care (01) | LOC: FB.ED 17:48 | DX: B07.9 Viral wart, unspecified (principal); R20.2 Paresthesia of skin; Z88.0 Allergy status to penicillin; Z86.16 Personal history of COVID-19 | CPT/HCPCS: 99283 ==

== ENCOUNTER 2022-12-29 14:16 | Emergency (ER) | payer MEDICAID ==
[2022-12-29] MEDS ORDERED: Ketorolac 30 MG/ML SDV IM ONE (14:48)
[2022-12-29 15:25] LABS: BASOPHILS PERCENT AUTO 0.1 % (0.2-1.5); EOSINOPHILS PERCENT AUTO 0.5 % (0.6-8.1); HEMATOCRIT 40.6 % (34.2-48.2); LYMPHOCYTES ABSOLUTE AUTO 0.7 x10-3/uL (1.0-4.4); LYMPHOCYTES PERCENT AUTO 8.4 % (18.4-52.1); MEAN CORPUSCULAR HGB CONC 34.5 g/dL (31.9-34.8); MEAN CORPUSCULAR VOLUME 87.1 fL (76.7-100.5); MEAN PLATELET VOLUME 7.3 fL (7.1-12.4); MONOCYTES ABSOLUTE AUTO 0.4 x10-3/uL (0.3-1.0); MONOCYTES PERCENT AUTO 5.2 % (4.4-15.7); NEUTROPHILS ABSOLUTE AUTO 7.3 x10-3/uL (1.5-6.3); NEUTROPHILS PERCENT AUTO 85.8 % (30.8-76.2); PLATELET COUNT,PLT 199 x10(3)uL (151-488); RED BLOOD CELL COUNT 4.67 x10(6)uL (3.60-5.20); RED CELL DISTRIBUTION WIDTH 12.4 % (12.3-16.5); WHITE BLOOD CELL COUNT,WBC 8.6 x10-3/uL (3.0-10.3)
[2022-12-29 15:30] LABS: BLOOD UREA NITROGEN,BUN 9 mg/dL (7-18); CALCIUM 9.1 mg/dL (8.6-10.2); CARBON DIOXIDE,CO2 26 mmol/L (21-32); CHLORIDE,CL 102 mmol/L (100-110); CREATININE 0.6 mg/dL (0.55-1.02); ESTIMATED GFR 128 mL/min (>60); GLUCOSE RANDOM 96 mg/dL (80-116); POTASSIUM,K 4.3 mmol/L (3.5-5.3); SODIUM,NA 136 mmol/L (135-145)
[2022-12-29 15:36] LABS: A/G RATIO 0.9; ALANINE AMINOTRANSFERASE,ALT 23 U/L (12-36); ALBUMIN 3.8 g/dL (3.5-5.2); ALKALINE PHOSPHATASE 38 IU/L (56-112); ASPARTATE AMNIOTRANSFERASE,AST 19 IU/L (5-25); BILIRUBIN TOTAL 0.6 mg/dL (0.1-1.3); PROTEIN TOTAL,TP 7.9 g/dL (6.0-8.0)
[2022-12-31 18:44] LABS: FERRITIN 62 ng/mL (13-150)
== END 2022-12-29 16:44 | disposition home or self-care (01) ==
LOC: FB.ED 14:16
DX: O03.9 Complete or unspecified spontaneous abortion without complication (principal); Z86.16 Personal history of COVID-19; Z87.891 Personal history of nicotine dependence; Z88.0 Allergy status to penicillin
CPT/HCPCS: 36415; 80053; 82728; 85025; 86140; 96372; 99284; J1885

== ENCOUNTER 2024-08-06 21:35 | Emergency (ER) | payer BC, MEDICAID ==
[2024-08-06] MEDS: Cyclobenzaprine 10 MG Tab PO ONE (22:39)
== END 2024-08-06 22:54 | disposition home or self-care (01) ==
LOC: FB.ED 21:35
DX: R07.89 Other chest pain (principal); F41.9 Anxiety disorder, unspecified; F17.200 Nicotine dependence, unspecified, uncomplicated; Z88.0 Allergy status to penicillin; Z79.899 Other long term (current) drug therapy; Z86.16 Personal history of COVID-19
CPT/HCPCS: 99284; A9270

== ENCOUNTER 2024-11-10 09:15 | Emergency (ER) | payer BC, MEDICAID ==
[2024-11-10] MEDS ORDERED: Sodium Chloride 0.9% 10 ML Syringe FLUSH PRN (09:46)
[2024-11-10] MEDS: Ondansetron 4 MG/2 ML SDV IVPUSH ONE (10:08)
[2024-11-10 10:23] LABS: BASOPHILS ABSOLUTE AUTO 0.0 x10-3/uL (0.0-0.1); BASOPHILS PERCENT AUTO 0.5 % (0.2-1.5); EOSINOPHILS ABSOLUTE AUTO 0.4 x10-3/uL (0.0-0.8); EOSINOPHILS PERCENT AUTO 8.5 % (0.6-8.1); LYMPHOCYTES ABSOLUTE AUTO 1.0 x10-3/uL (1.0-4.4); LYMPHOCYTES PERCENT AUTO 20.0 % (18.4-52.1); MEAN PLATELET VOLUME 8.1 fL (7.1-12.4); MONOCYTES ABSOLUTE AUTO 0.3 x10-3/uL (0.3-1.0); MONOCYTES PERCENT AUTO 6.5 % (4.4-15.7); NEUTROPHILS ABSOLUTE AUTO 3.2 x10-3/uL (1.5-6.3); NEUTROPHILS PERCENT AUTO 64.5 % (30.8-76.2); PLATELET COUNT,PLT 182 x10(3)uL (151-488); RED BLOOD CELL COUNT 4.91 x10(6)uL (3.60-5.20); RED CELL DISTRIBUTION WIDTH 12.7 % (12.3-16.5); WHITE BLOOD CELL COUNT,WBC 4.9 x10-3/uL (3.0-10.3)
[2024-11-10 10:27] LABS: GLUCOSE,URINE NORMAL (NORMAL); OCCULT BLOOD,URINE MODERATE (NEGATIVE)
[2024-11-10 10:28] LABS: BLOOD UREA NITROGEN,BUN 12 mg/dL (7-18); CARBON DIOXIDE,CO2 28 mmol/L (21-32); CHLORIDE,CL 103 mmol/L (100-110); CREATININE 1.0 mg/dL (0.55-1.02); EST CRCL DRUG DOSING (CG) 67.43 mL/min; ESTIMATED GFR 80 mL/min (>60); GLUCOSE RANDOM 89 mg/dL (80-116); POTASSIUM,K 3.9 mmol/L (3.5-5.3); SODIUM,NA 138 mmol/L (135-145)
[2024-11-10 10:29] LABS: APPEARANCE,URINE CLEAR (CLEAR)
[2024-11-10 10:33] LABS: A/G RATIO 1.0; ALANINE AMINOTRANSFERASE,ALT 17 U/L (12-36); ASPARTATE AMNIOTRANSFERASE,AST 14 IU/L (5-25); BILIRUBIN TOTAL 0.7 mg/dL (0.1-1.3); PROTEIN TOTAL,TP 8.0 g/dL (6.0-8.0)
[2024-11-10 10:42] LABS: SQUAMOUS EPITHELIAL CELLS,UR MODERATE (NS,R,O)
[2024-11-10] MEDS: Ketorolac 30 MG/ML SDV IVPUSH ONE (11:14)
[2024-11-10] MEDS ORDERED: Naloxone 0.4 MG/ML SDV IVPUSH PRN (11:51)
[2024-11-10] MEDS: Iopamidol 755 Mg/ML 100 ML Bottle IV SCH (12:11)
== END 2024-11-10 14:25 | disposition home or self-care (01) ==
LOC: FB.ED 09:15
DX: K52.9 Noninfective gastroenteritis and colitis, unspecified (principal); E86.0 Dehydration; Z88.0 Allergy status to penicillin; Z86.16 Personal history of COVID-19
CPT/HCPCS: 36415; 74177; 80053; 81001; 81025; 83605; 83690; 83735; 85025; 86140; 96361; 96365; 96375; 99284; J1885; J2270; J2405; J2550; J7030; Q9967

== ENCOUNTER 2024-12-24 09:28 | Day surgery (SDC) | payer BC ==
[~2024-12-24 09:28] MED LIST changes: -Lidocaine 1% with EPINEPHrine 1:100,000 20 ML MDV INJECT ONE; +Sodium Chloride 0.9% 10 ML Syringe FLUSH PRN; -fentaNYL 400 MCG in Ropivacaine HCl/PF 200 ML IV ONE
[2024-12-24] MEDS ORDERED: Midazolam 1 MG/ML 2 ML SDV IV ONE (09:29)
[2024-12-24] MEDS ORDERED: Glycopyrrolate 0.2 MG/ML 5 ML MDV IV ONE (09:29)
[2024-12-24] MEDS ORDERED: Propofol 200 MG/20 ML SDV IV ONE (09:29)
[2024-12-24] MEDS: Lactated Ringers 1,000 ML IV SCH (10:12)
== END 2024-12-24 12:43 | disposition home or self-care (01) ==
LOC: FB.SDS 09:28
PROVIDERS: ATTEND Surgery
DX: D12.6 Benign neoplasm of colon, unspecified (principal); K62.5 Hemorrhage of anus and rectum; K62.89 Other specified diseases of anus and rectum; R15.9 Full incontinence of feces; Z88.5 Allergy status to narcotic agent; Z88.0 Allergy status to penicillin; Z87.891 Personal history of nicotine dependence
CPT/HCPCS: 00811; 81025; 88305; A9270-GY; J1596; J2003; J2250; J2704; J7120